=== PATIENT | male | born 1985 | race Caucasian/White ===

== ENCOUNTER 2021-03-25 10:52 | Outpatient (CLI) | payer BC ==
[2021-03-25] MEDS ORDERED: FUROSEMIDE 20 MG/2 ML ONE (11:26)
== END 2021-03-25 23:59 | disposition home or self-care (01) ==
LOC: RAD 10:52
PROVIDERS: ATTEND Physician Assistant
DX: N13.5 Crossing vessel and stricture of ureter without hydronephrosis (principal)
CPT/HCPCS: 78708; A9562; J1940